=== PATIENT | male | born 2000 | race Caucasian/White ===

== ENCOUNTER 2019-02-13 08:15 | Emergency (ER) | payer MEDICAID, OTHER ==
[~2019-02-13] VITALS: Ht 180.3 cm; Wt 61.4 kg
[~2019-02-13 08:15] MED LIST: NOCURR
[2019-02-13] MEDS ORDERED: POVIDONE-IODINE 10% 120 ML SOLUTION TP ONE (08:45)
[2019-02-13] MEDS ORDERED: BUPIVACAINE HCL/PF 0.25% 10 ML VIAL INJ ONE (08:45)
[2019-02-13 09:12] VITALS: BP 122/76
== END 2019-02-13 09:22 | disposition home or self-care (01) ==
LOC: EMS 08:16
DX: L03.012 Cellulitis of left finger (principal)
CPT/HCPCS: 10060; 99283; J3490

== ENCOUNTER 2021-09-02 11:15 | Emergency (ER) | payer SELFPAY ==
[~2021-09-02] VITALS: Ht 180.3 cm; Wt 72.7 kg
[2021-09-02 11:37] VITALS: BP 121/71
[2021-09-02] MEDS ORDERED: PRED-554 PO (12:44)
[2021-09-02] MEDS ORDERED: AMOX500C2 PO (12:45)
[2021-09-02] MEDS ORDERED: PredniSONE 20 MG TABLET PO ONE (12:45)
== END 2021-09-02 12:51 | disposition home or self-care (01) ==
LOC: EMS 11:15
DX: T63.441A Toxic effect of venom of bees, accidental (unintentional), initial encounter (principal); Y92.89 Other specified places as the place of occurrence of the external cause
CPT/HCPCS: 99283; J7512